=== PATIENT | female | born 1965 | race Caucasian/White ===

== ENCOUNTER 2021-06-16 18:10 | Emergency (ER) | payer SELFPAY ==
[~2021-06-16] VITALS: Ht 157.5 cm; Wt 54.4 kg
[2021-06-16 18:10] VITALS: BP 148/68
[2021-06-16] MEDS ORDERED: IBUP-1955 PO (20:33)
--- NOTE | 2021-06-16 20:37 | NUR ---
Patient discharged to home in stable condition. Written and verbal after care instructions given. Patient verbalizes understanding of instruction.
== END 2021-06-16 20:38 | disposition home or self-care (01) ==
LOC: ER 18:45
DX: R68.84 Jaw pain (principal); V43.52XA Car driver injured in collision with other type car in traffic accident, initial encounter; Y93.89 Activity, other specified; Y92.410 Unspecified street and highway as the place of occurrence of the external cause; Y99.8 Other external cause status
CPT/HCPCS: 70486-TC